=== PATIENT | male | born 1945 | race Caucasian/White ===

== ENCOUNTER → 2016-09-16 | Outpatient (CLI) | payer MEDICARE, OTHER ==
[~2016-09-16] MED LIST: ASPI-496 PO; ASPI-650 PO; DIPH25TA50 PO; LISI5TAB7 PO; METO25TA35 PO; SIMV40TA3 PO; TRIA10.8 NAS
== END | disposition home or self-care (01) ==
LOC: CARD 14:36
PROVIDERS: ATTEND Internal Medicine Critical Care Medicine
DX: R06.02 Shortness of breath (principal)
CPT/HCPCS: 94060; 94620; 94726; 94729